=== PATIENT | female | born 1950 | race Caucasian/White ===

== ENCOUNTER → 2019-02-22 | Day surgery (SDC) | payer MEDICARE, MEDICAID ==
[~2019-02-22] MED LIST: DEXAMETHASONE SOD PHOS 4 MG/ML VIAL ONE; GLIM2TAB3 PO; HYDR-3164 PO; HYDROmorphone 2 MG/ML VIAL IV PRN; INSULIN LISPRO 100 UNIT/ML 3ML VIAL for OP,RR ONLY. SQ PRN; IV RINGERS,LACTATED 1000ML 1,000 ML IV SCH; LEVO50TA5 PO; LIDOCAINE 1% PF 2 ML VIAL. ID PRN; LIDOCAINE 2% PF 5 ML VIAL. ONE; LISI10TA2 PO; LOVA20TA2 PO; METF10007 PO; METOPROLOL TARTRATE 5 MG/5 ML VIAL. IVP ONE; MORPHINE SULFATE 2 MG/ML VIAL. IV PRN; ONDANSETRON PF 4 MG/2 ML VIAL. IV PRN; ONDANSETRON PF 4 MG/2 ML VIAL. ONE; PROCHLORPERAZINE 10 MG/2 ML VIAL. IV PRN; PROPOFOL 20 ML IV ONE; SEVOFLURANE 31 TO 60 MINUTES. IH ONE; fentaNYL PF VIAL 100 MCG/2 ML VIAL IV PRN; fentaNYL PF VIAL 100 MCG/2 ML VIAL ONE
[2019-02-22 15:21] VITALS: BP 173/75
--- NOTE | 2019-02-22 17:25 | OP ---
DATE OF SURGERY: 02/22/2019 PREOPERATIVE DIAGNOSES: Postmenopausal bleeding, probable endometrial polyps. POSTOPERATIVE DIAGNOSES: Postmenopausal bleeding, probable endometrial polyps. PROCEDURE: Diagnostic hysteroscopy with TruClear polypectomy and removal of polyp with TruClear. SURGEON: Carlitos Duarte MD CT SCAN TECHNICIAN: None. ANESTHESIA: General. ESTIMATED BLOOD LOSS: 20 mL. FLUIDS: Crystalloid. SPECIMENS: Polyp and shavings along with endometrial curettings. COMPLICATIONS: None. CONDITION: Stable. DESCRIPTION OF PROCEDURE: Risks, benefits, indications, alternatives discussed in detail with the patient. The patient was brought to OR theater, [facility] After adequate general anesthesia, the patient was prepped and draped in usual sterile manner. Posterior weighted speculum was placed in the vaginal vault. Cervix was grasped with single-tooth tenaculum. The uterus was sounded to 9 cm. Hegar dilators were used to dilate up the cervix to receive the TruClear. TruClear was placed. Polyp was visualized. Polyp was first curettaged out and grabbed with polyp forceps and removed from the endometrial cavity. The TruClear was once again inspected and noted that some of the polyp was still present, base of polyp was still present. All this was taken down with TruClear shaving device. Once again, the TruClear was placed. Inspected uterus. All remnants of the polyp were gone and the procedure was terminated. Single-tooth tenaculum was removed. Puncture sites were hemostatic. Posterior weighted speculum was removed. Vaginal vault was wiped clean of any tissue or blood. Sponge, needle, and instrument counts were correct x 2 per nursing staff. The patient went to postop anesthesia recovery in stable condition. CARLITOS DUARTE MD DR: ALLAN/judith JOB#: [id number] / [id number]
--- NOTE | 2019-02-23 18:06 | PATHOLOGY ---
[facility] Accession Number: [id number] . 01 Material submitted: . PART A: endometrium - ENDOMETRIAL CURETTINGS PART B: endometrium - ENDOMETRIAL POLYP . 01 Clinical history: . Abnormal uterine bleeding . 02 Diagnosis: A. Endometrial curettings: - Endometrial polyp. . B. Additional endometrial tissue: - Endometrial polyps. . 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 02 Comment: There is no atypia or evidence of malignancy. 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 02 Electronically signed: . Ge Bansal MD, Pathologist NPI- [id number] . 01 Gross description: . A. Received in formalin labeled "Tavia Montemayor, endometrial curettings," is blood-tinged mucoid material containing small fragments of barry membranous tissue, measuring 2.0 x 1.3 x 0.2 cm in aggregate dimensions. The specimen is filtered and submitted entirely in cassette A1. . B. Received in formalin labeled "Tavia Montemayor, polyp (endometrial)," is a 2.1 x 1.1 x 0.9 cm polypoid piece of barry soft tissue. The presumed margin is inked and the tissue is sectioned perpendicular to the margin and submitted entirely in cassettes B1 and B2. Additionally received in the same container is a 1.5 x 0.5 x 0.5 cm polypoid piece of barry soft tissue. The presumed margin is inked and the specimen is sectioned perpendicular to the margin and entirely submitted in cassette B3. Also received in the container is a 1.1 x 0.8 x 0.5 cm polypoid piece of barry soft tissue. The presumed margin is inked and the specimen is sectioned perpendicular to the margin and entirely submitted in cassette B4. Additionally received in the container are multiple fragments of barry soft tissue measuring 3.4 x 1.8 x 0.9 cm in aggregate dimensions. The specimen is filtered and entirely submitted in cassettes B5 and B6. (TSD; 02/22/2019) /TOB 02/23/2019 1235 Local . 02 Pathologist provided ICD-10: N84.0 . 02 CPT . 469825, [id number] Specimen Comment: A courtesy copy of this report has been sent to Specimen Comment: [phone]. Specimen Comment: Report sent to Performed at: [facility] [address], [place] [id number] MD Héctor Driscoll MD Phone: [phone] Performed at: [facility] [address] [place], [place] [id number] MD Ge Bansal MD Phone: [phone]
--- NOTE | 2019-02-25 12:05 | PDOC ---
BRIEF OPERATIVE NOTE Pre-Op Diagnosis PMB uterine polyp Post-Op Diagnosis Same Procedure Performed Hysteroscopic D and C with true tere and polypectomy Surgeon Felicia Anesthesia Type: General Blood Loss 20cc Specimens Obtained EMB and polyp Complications None MANDA WALKER MD Feb 25, 2019 12:05
== END | disposition home or self-care (01) ==
LOC: SURG 11:14
PROVIDERS: ATTEND Specialist
DX: N95.0 Postmenopausal bleeding (principal); N84.0 Polyp of corpus uteri; I10 Essential (primary) hypertension; E11.9 Type 2 diabetes mellitus without complications; E03.9 Hypothyroidism, unspecified; E66.9 Obesity, unspecified; Z79.899 Other long term (current) drug therapy; Z79.84 Long term (current) use of oral hypoglycemic drugs
CPT/HCPCS: 58558; 82962; 88305; A7015; J1100; J2001; J2405; J2704; J3010; J3490